=== PATIENT | female | born 1985 | race Caucasian/White ===

== ENCOUNTER → 2016-10-06 | Day surgery (SDC) | payer BC ==
[2016-09-19 09:13] VITALS: Ht 167.9 cm; Wt 58.2 kg
[~2016-10-06] VITALS: Ht 167.9 cm; Wt 58.2 kg
[~2016-10-06] MED LIST: ETONMIS VAGRING; MULT-506 PO
[2016-10-06 12:00] VITALS: BP 150/77; PULSE 65; TEMP 36.2; O2SAT 100
--- NOTE | 2016-10-11 02:54 | OPERATIVE REPORT ---
DATE OF OPERATION: 10/06/2016 PROCEDURE: Hydrogen breath test for lactose intolerance. INDICATIONS: The patient is having abdominal bloating. DESCRIPTION OF PROCEDURE: The patient presented to the endoscopy center at [facility] on October 06 and ingested 25 grams of lactose. Her baseline hydrogen level was 3 with a CO2 level of 3.5. Hydrogen levels and CO2 levels were obtained every 60 minutes for 3 hours. At 60 minutes her hydrogen level was 16, at 120 minutes was 48, she was experiencing gas, cramps and urge to move her bowels. At 180 minutes her hydrogen level was 44 with the same symptoms. Her CO2 level remained close to baseline the entire time. IMPRESSION: The patient had a rise in hydrogen level during her test with symptoms. These are consistent with LACTOSE INTOLERANCE. I attest to the content of the Intraoperative Record and any orders documented therein. Any exceptio ns are noted below.
== END | disposition home or self-care (01) ==
LOC: C.GI 08:27
PROVIDERS: ATTEND Internal Medicine Gastroenterology
DX: E74.39 Other disorders of intestinal carbohydrate absorption (principal)

== ENCOUNTER → 2016-11-22 | Outpatient (CLI) | payer BC | END | disposition home or self-care (01) | LOC: C.LAB1850 15:11 | PROVIDERS: ATTEND Obstetrics & Gynecology | DX: N83.9 Noninflammatory disorder of ovary, fallopian tube and broad ligament, unspecified (principal) ==

== ENCOUNTER → 2017-02-17 | Outpatient (CLI) | payer BC | END | disposition home or self-care (01) | LOC: C.LAB1850 16:24 | PROVIDERS: ATTEND Obstetrics & Gynecology | DX: Z32.00 Encounter for pregnancy test, result unknown (principal) ==

== ENCOUNTER → 2017-03-10 | Outpatient (CLI) | payer BC ==
[2017-03-10 14:10] LABS: URINE APPEARANCE CLEAR (CLEAR); URINE BILIRUBIN NEG (NEG); URINE COLOR YELLOW; URINE EPITHELIAL CELL AUTO >30 /lpf (0-5); URINE NITRITE NEG (NEG); URINE SPECIFIC GRAVITY 1.025 (1.000-1.030); UROBILINOGEN NEG (NEG)
[2017-03-10 14:11] LABS: MANUAL MICROSCOPIC REQUIRED? NO; REVIEW REQ? NO
== END | disposition home or self-care (01) ==
LOC: C.LABSPEC 13:14
PROVIDERS: ATTEND Obstetrics & Gynecology
DX: Z34.03 Encounter for supervision of normal first pregnancy, third trimester (principal)

== ENCOUNTER → 2017-03-14 | Outpatient (CLI) | payer BC ==
[2017-03-14 12:21] LABS: BASO % 0.1 %; BASO ABS # 0.01 K/uL (0-0.2); COMPLETE YES; EOS % 0.4 %; HEMATOCRIT 37.8 % (37-47); IG% 0.3 %; LYMPH % 9.7 %; LYMPH ABS # 1.03 K/uL (1.2-3.4); MEAN CELL VOLUME 84.8 fL (80-100); MEAN CORPUSCULAR HGB CONC 35.4 g/dl (32-36); MEAN PLATELET VOLUME 11.1 fL (7.4-10.4); MONO % 8.7 %; NEUT % 80.8 %; PLATELET COUNT 246 K/uL (130-400); RED BLOOD COUNT 4.46 M/uL (4.2-5.4); WHITE BLOOD COUNT 10.65 K/uL (4.8-10.8)
== END | disposition home or self-care (01) ==
LOC: C.LAB1850 10:34
PROVIDERS: ATTEND Obstetrics & Gynecology
DX: Z01.419 Encounter for gynecological examination (general) (routine) without abnormal findings (principal); Z34.02 Encounter for supervision of normal first pregnancy, second trimester; N83.9 Noninflammatory disorder of ovary, fallopian tube and broad ligament, unspecified

== ENCOUNTER → 2017-04-14 | Outpatient (CLI) | payer BC ==
[2017-04-14 16:11] LABS: GTGD 50 Grams
[2017-04-17 15:21] LABS: AFP CONCENTRATION 50.3 NG/ML; AFP MULTIPLE OF MEDIAN 1.39; AFPTS GESTATIONAL AGE 16.1 WEEKS; AFPTS INSULIN DEP DIABETIC? NO; AFPTS MATERNAL WT 132 LBS; ALPHA-FETOPROTEIN RACE CAUCASIAN=W; HISTORY OF NTD NO; REPEAT SAMPLE? NO
== END | disposition home or self-care (01) ==
LOC: C.LAB1850 13:46
PROVIDERS: ATTEND Obstetrics & Gynecology
DX: Z34.02 Encounter for supervision of normal first pregnancy, second trimester (principal)

== ENCOUNTER → 2017-06-02 | Outpatient (CLI) | payer BC ==
[2017-06-05 09:16] LABS: D. FARINAE CLASS 2; D. PTERONYSSINUS CLASS 2; D. PTERONYSSINUS IGE 1.75 KU/L; DOG DANDER CLASS 0
== END | disposition home or self-care (01) ==
LOC: C.LAB1850 09:49
PROVIDERS: ATTEND Internal Medicine Pulmonary Disease
DX: J31.0 Chronic rhinitis (principal)

== ENCOUNTER → 2017-07-18 | Outpatient (CLI) | payer OTHER ==
[~2017-07-18] MED LIST changes: +PRENTAB26 PO
== END | disposition home or self-care (01) ==
LOC: C.LAB 15:38
PROVIDERS: ATTEND Obstetrics & Gynecology
DX: O36.0191 Maternal care for anti-D [Rh] antibodies, unspecified trimester, fetus 1 (principal)

== ENCOUNTER → 2017-07-20 | Day surgery (SDC) | payer OTHER ==
[~2017-07-20] VITALS: Ht 167.6 cm; Wt 64.0 kg
[~2017-07-20] MED LIST changes: -PRENTAB26 PO
[2017-07-20 13:27] VITALS: BP 104/71; PULSE 84; TEMP 36.8; O2SAT 96; Ht 167.6 cm; Wt 64.0 kg
== END | disposition home or self-care (01) ==
LOC: EDSTATUS 13:00 → C.MTU 13:01
PROVIDERS: ATTEND Obstetrics & Gynecology
DX: O36.0990 Maternal care for other rhesus isoimmunization, unspecified trimester, not applicable or unspecified (principal); Z3A.00 Weeks of gestation of pregnancy not specified

== ENCOUNTER 2017-09-19 13:21 | Inpatient (IN) | payer OTHER ==
[~2017-09-19] VITALS: Ht 165.1 cm; Wt 69.8 kg
[2017-09-19] MEDS ORDERED: LACTATED RINGER'S 1000ML 1,000 ML IV PRN ×2 (14:07→15:20)
[2017-09-19] MEDS ORDERED: PRENTAB26 PO (14:14)
[2017-09-19 14:18] VITALS: Ht 165.1 cm; Wt 69.8 kg
[2017-09-19] MEDS ORDERED: MISOPROSTOLTAB 50 MCG TAB PO ONE ×2 (14:30→15:30)
[2017-09-19 14:50] LABS: HEMATOCRIT 36.3 % (37-47); HEMOGLOBIN 13.1 g/dL (12.0-16.0); MEAN CELL VOLUME 85.2 fL (80-100); MEAN CORPUSCULAR HEMOGLOBIN 30.8 pg (25-34); MEAN CORPUSCULAR HGB CONC 36.1 g/dl (32-36); PLATELET COUNT 165 K/uL (130-400); WHITE BLOOD COUNT 10.91 K/uL (4.8-10.8)
[2017-09-19 15:04] LABS: ALBUMIN 2.8 gm/dl (3.4-5.0); ALT/SGPT 32 U/L (12-78); BLOOD UREA NITROGEN 20 mg/dl (7-18); CALCIUM 9.1 mg/dl (8.5-10.1); CARBON DIOXIDE 21 mmol/L (21-32); CREATININE 0.93 mg/dl (0.60-1.20); GLUCOSE 73 mg/dl (70-99); POTASSIUM 4.5 mmol/L (3.5-5.1); SODIUM 134 mmol/L (136-145)
[2017-09-19 15:07] LABS: ALKALINE PHOSPHATASE 176 U/L (45-117); AST/SGOT 37 U/L (15-37); TOTAL PROTEIN 6.7 gm/dl (6.4-8.2)
[2017-09-19] MEDS ORDERED: NURSING VERBAL MED ORDER ONE (15:45)
[2017-09-19] MEDS: CALCIUM CARBONATE 500 MG CHEWABLE PO PRN (17:55)
[2017-09-19] MEDS: ACETAMINOPHEN 325 MG TAB PO PRN (17:56)
[2017-09-19] MEDS ORDERED: DINOPROSTONE 10 MG INSERT PV ONE (20:27)
[2017-09-20] MEDS: ACETAMINOPHEN 325 MG TAB PO PRN (00:04)
[2017-09-20] MEDS: CALCIUM CARBONATE 500 MG CHEWABLE PO PRN ×2 (02:22→23:14)
[2017-09-20] MEDS ORDERED: LACTATED RINGER'S 1000ML 500 ML IV PRN ×2 (10:53→19:44)
[2017-09-20] MEDS ORDERED: OXYTOCIN 30 UNITS/500ML NSS IV PRN (11:00)
[2017-09-20] MEDS: LACTATED RINGER'S 1000ML 1,000 ML IV SCH ×3 (11:50→19:01)
[2017-09-20] MEDS ORDERED: BUPIVACAINE 0.25% 30 ML VIAL ONE (18:25)
[2017-09-20] MEDS ORDERED: EpHEDrine SULFATE INJ 50 MG/ML AMP ONE (18:25)
[2017-09-20] MEDS ORDERED: FENTANYL CITRATE INJ 50 MCG/1 ML 2 ML VIAL ONE (18:26)
[2017-09-20] MEDS ORDERED: FENTANYL 2MCG/ML ROPIV 1.25MG/ML 100ML BAG EPI ONE (18:26)
[2017-09-20] MEDS ORDERED: NALOXONE HCL INJ 1 MG in SODIUM CHLORIDE 0.9% 1000ML 1,000 ML IV PRN ×4 (19:44)
[2017-09-20] MEDS ORDERED: ONDANSETRON INJ 2 MG/ML 2 ML VIAL IV PRN (19:45)
[2017-09-20] MEDS ORDERED: FENTANYL 2MCG/ML ROPIV 1.25MG/ML 100ML BAG EPI PRN (19:45)
[2017-09-20] MEDS ORDERED: DiphenhydrAMINE HCL 50 MG/ML VIAL IV PRN (19:45)
[2017-09-20] MEDS ORDERED: PROMETHAZINE HCL INJ 25 MG in SODIUM CHLORIDE 0.9% 50ML 50 ML IV PRN (19:45)
[2017-09-20] MEDS ORDERED: NALBUPHINE HCL INJ 10 MG/ML AMP IV PRN (19:45)
[2017-09-20] MEDS ORDERED: EpHEDrine SULFATE INJ 50 MG/ML AMP IV PRN (19:45)
[2017-09-20] MEDS ORDERED: NALOXONE HCL INJ 0.4 MG/1 ML VIAL/CARP IV PRN (19:45)
[2017-09-20] MEDS ORDERED: CALCIUM CARBONATE 500 MG CHEWABLE PO PRN (23:15)
[2017-09-21] VITALS (17 sets, daily range): BP systolic 137–154; BP diastolic 75–86; PULSE 61–77; TEMP 36.4–37; O2SAT 93–100
[2017-09-21] MEDS: FENTANYL CITRATE INJ 50 MCG/1 ML 2 ML VIAL ONE ×2 (03:23→03:30)
[2017-09-21] MEDS ORDERED: CEFOXITIN IV 2,000 MG in DEXTROSE 5% 50ML 50 ML IV SCH (06:00)
[2017-09-21] MEDS ORDERED: CITRIC ACID/SODIUM CITRATE 15 ML UDC ONE (06:15)
[2017-09-21] MEDS ORDERED: CITRIC ACID/SODIUM CITRATE 15 ML UDC PO ONE (06:15)
[2017-09-21] MEDS ORDERED: FENTANYL CITRATE INJ 50 MCG/1 ML 2 ML VIAL ONE (06:17)
[2017-09-21] MEDS ORDERED: LIDOCAINE/EPINEPHRINE 2% 1:200,000 20 ML SDV ONE (06:17)
[2017-09-21] MEDS ORDERED: OXYTOCIN INJ 10 UNITS/ML VIAL ONE ×4 (06:18→07:32)
[2017-09-21] MEDS ORDERED: PROMETHAZINE HCL INJ 12.5 MG in SODIUM CHLORIDE 0.9% 50ML 50 ML IV PRN ×2 (06:30→08:00)
[2017-09-21] MEDS ORDERED: EpHEDrine SULFATE INJ 50 MG/ML AMP IV PRN ×2 (06:30→08:00)
[2017-09-21] MEDS ORDERED: ATROPINE SULFATE 0.1 MG/ML 5ML SYR IV PRN (06:30)
[2017-09-21] MEDS ORDERED: FENTANYL CITRATE INJ 50 MCG/1 ML 2 ML VIAL IV PRN (06:30)
[2017-09-21] MEDS ORDERED: HYDROmorphone INJ 1 MG/ML SYR IV PRN (06:30)
[2017-09-21] MEDS ORDERED: PHENYLEPHRINE 100MCG/ML 5ML SYR IV PRN (06:30)
[2017-09-21] MEDS ORDERED: ONDANSETRON INJ 2 MG/ML 2 ML VIAL IV PRN ×2 (06:30→08:00)
[2017-09-21] MEDS ORDERED: FENTANYL CITRATE INJ 50 MCG/1 ML 2 ML VIAL IV ONE (06:30)
--- NOTE | 2017-09-21 06:38 | HISTORY & PHYSICAL EXAMINATION ---
DATE OF ADMISSION: 09/21/2017 CHIEF COMPLAINT: Toxemia of , arrest of labor. HISTORY OF PRESENT ILLNESS: The patient is a 32-year-old 1, para 0. Her general health is good and her due date is 09/28/2017 confirmed by early ultrasound. was uneventful until 09/15/2017 when she developed a constant headache which was not responsive to Tylenol and lasted the entire week and she called the office on Monday. She was brought in on 09/19/2017. At that time, she had a blood pressure of 140/92. Her other pressures were in the range of about 115/75-78. She also had +1 protein. At this time, she was diagnosed with toxemia associated with a constant headache. She was brought in for induction of labor. Labor was started with p.o. Cytotec 50 mcg. Then we went to a Cervidil tape and then to IV Pitocin. Her membranes ruptured spontaneously. Fluid was clear. Eventually she had epidural from which she obtained good pain relief, was fully dilatation and pushed for well over 3 hours, was unable to engage the head into the mid pelvis. Diagnosis of cephalopelvic disproportion was made and she was scheduled for section. ALLERGIES: No known drug allergies. PAST SURGICAL HISTORY: She had her left ovary removed due to a benign large ovarian cyst. MEDICAL HISTORY: No history of rheumatic fever, heart disease, heart murmur, diabetes, tuberculosis. SOCIAL HISTORY: No smoking, no alcohol intake. Works for [employer]. FAMILY HISTORY: Mom is 68 in good health. Father 65 in good health. One sister in good health. REVIEW OF SYSTEMS: HEAD: No symptoms of frequent or severe headaches. EYES: No symptoms of blurred vision, double vision. EARS: No symptoms of frequent ear infections, difficulty hearing. PHYSICAL EXAMINATION: GENERAL: Well developed, well-nourished 32-year-old white female, alert, oriented x3 and cooperative in no acute distress. EYES: Conjunctivae are pink. Sclerae white, no evidence of jaundice. HEART: Had regular rhythm. S1, S2 are normal. BREASTS: Normal. ABDOMEN: Consistent with a term size fetus. No CVA tenderness. Well-healed Pfannenstiel scar. PELVIC: Revealed a MEHDI vertex position, large amount of molding and about a 0 to +1 station. IMPRESSIONS OF THIS CASE: Intrauterine , 39 weeks gestation, arrest of labor secondary to cephalopelvic disproportion and toxemia of and cephalopelvic disproportion. BASIAD
[2017-09-21] MEDS ORDERED: EpHEDrine SULFATE INJ 50 MG/ML AMP ONE (06:50)
[2017-09-21] MEDS ORDERED: PHENYLEPHRINE HCL INJ 10 MG/ML VIAL ONE (06:50)
[2017-09-21] MEDS ORDERED: MoRPHine SULFATE PF 1 MG/ML 10 ML AMP/VIAL ONE (07:00)
[2017-09-21] MEDS ORDERED: DC INTRASPINAL MORPHINE SCH (07:10)
[2017-09-21] MEDS ORDERED: LACTATED RINGER'S 1000ML 500 ML IV PRN (07:52)
[2017-09-21] MEDS ORDERED: SODIUM CHLORIDE 0.9% 1000ML 1,000 ML IV PRN (07:52)
[2017-09-21] MEDS ORDERED: NALOXONE HCL INJ 1 MG in SODIUM CHLORIDE 0.9% 1000ML 1,000 ML IV PRN ×4 (07:52)
[2017-09-21] MEDS ORDERED: NALOXONE HCL INJ 0.08 MG in SYRINGE 1.8 ML IV PRN (07:52)
[2017-09-21] MEDS ORDERED: NALBUPHINE HCL INJ 10 MG/ML AMP IV PRN (08:00)
[2017-09-21] MEDS ORDERED: BENZOCAINE 20% AER SPR 82.5 GM CAN EXT PRN (08:00)
[2017-09-21] MEDS ORDERED: DIPHTHERIA/TETANUS/PERTUSSIS 0.5 ML SYR/VIAL IM. ONE (08:00)
[2017-09-21] MEDS ORDERED: MAGNESIUM HYDROXIDE SUSP 30 ML UDC PO PRN (08:00)
[2017-09-21] MEDS ORDERED: LANOLIN OINT EXT PRN (08:00)
[2017-09-21] MEDS ORDERED: MoRPHine SULFATE PF 1 MG/ML 10 ML AMP/VIAL EPI PRN (08:00)
[2017-09-21] MEDS ORDERED: SUPERCREAM 0.870 % 15GM JAR EXT PRN (08:00)
[2017-09-21] MEDS ORDERED: SENNA 8.6 MG TAB PO PRN (08:00)
[2017-09-21] MEDS ORDERED: NALOXONE HCL 0.4 MG/1 ML VIAL/CARP IV PRN (08:00)
[2017-09-21] MEDS ORDERED: MEPERIDINE HCL 25 MG/ML CARP IV PRN (08:00)
[2017-09-21] MEDS ORDERED: DiphenhydrAMINE HCL 50 MG/ML VIAL IV PRN (08:00)
[2017-09-21] MEDS ORDERED: NO NARCOTICS OR SEDATIVES SCH (08:00)
[2017-09-21] MEDS ORDERED: HYDROCORTISONE ACETATE 25 MG SUPP PR PRN (08:00)
--- NOTE | 2017-09-21 08:18 | OPERATIVE REPORT ---
DATE OF OPERATION: 09/21/2017 PROCEDURE: Primary low segment section. INDICATIONS FOR SURGERY: Toxemia, cephalopelvic disproportion. PREOPERATIVE DIAGNOSIS: Toxemia and cephalopelvic disproportion. POSTOPERATIVE DIAGNOSES: Nuchal cord x2, direct occiput posterior position. SURGEON: Vasiliy Tirado MD. CASINO RUNNER: Maged Andersen MD. ESTIMATED BLOOD LOSS: 400 mL. ANESTHESIA: Epidural. OPERATIVE FINDINGS AND PROCEDURE: The patient was brought to the OR table, correctly identified by armband and conversation. The epidural was topped off. Lower abdomen and upper thigh was painted with an alcohol based sterilizing solution, draped in usual sterile fashion. Adequacy of the anesthesia was tested and found to be good. Pfannenstiel incision was then made through her previous Pfannenstiel scar, carried down to the anterior fascia by sharp dissection. Hemostasis was secured by electrocauterization. Fascia was incised transversely from the underlying muscle by blunt and sharp dissection. Recti muscles were in the midline exposing the peritoneum which was carefully raised and entered. An incision was made above the vesicouterine fold. The bladder was undermined bluntly and pushed out of the operative field. Lower uterine segment was scored with a knife and then entered with the scissors. The head was wedged into the pelvis and I had to get my hand around it and dislodge the head from the pelvis. At this time, it was noted to be in direct occiput posterior position. Once the head was delivered, There was a nuchal cord x2, which had to be reduced around the neck. Then the body was delivered and the infant was attended to by the ortho assistant, Dr. Lin who was scrubbed and present at the time of delivery. Cord was clamped and cut. Cord was sent for gases, cord blood was taken. The placenta was removed intact. Uterus and right tube and ovary and left tube were brought out through the incision. Uterine cavity was wiped clean with a clean sponge. Ten units of Pitocin were injected into the myometrium. The myometrium was then approximated with a deep suture of heavy chromic and then a layer over this approximating the fascia with a heavy Vicryl and then several [id number] sutures of Vicryl to complete the approximation. Hemostasis was excellent. The peritoneal edges were then restored with a running chromic, which restored the integrity of the vesicouterine fold. The pelvis was cleansed of all blood clots and debris. Uterus, tubes, and ovaries were reinserted into the abdomen. Careful anatomical approximation of the anterior abdominal wall was performed. Peritoneum was closed with a mattress suture of chromic catgut. Recti muscles were approximated with interrupted [id number] suture of chromic catgut. The fascia was closed with continuous interlocking suture of Vicryl on each side, tied in the midline. SubQ was approximated with a running plain. The skin edges were approximated with staple clips. I attest to the content of the Intraoperative Record and any orders documented therein. Any exception s are noted below.
[2017-09-21] MEDS: KETOROLAC TROMETHAMINE 30 MG/ML VIAL IV. PRN ×2 (08:56→20:05)
[2017-09-21] MEDS: OXYTOCIN INJ 20 UNITS in LACTATED RINGER'S 1000ML 1,000 ML IV SCH ×2 (09:43→20:28)
--- NOTE | 2017-09-21 10:10 | Anesthesiology Progress Note ---
Anesthesia Post Op Note Date & Time Sep 21, 2017 at 10:10 Notes Mental Status: alert / awake / arousable, participated in evaluation Pt Amnestic to Procedure: Yes Nausea / Vomiting: adequately controlled Pain: adequately controlled Airway Patency, RR, SpO2: stable & adequate BP & HR: stable & adequate Hydration State: stable & adequate Anesthetic Complications: no major complications apparent
[2017-09-21] MEDS: PRENATAL VITAMIN TAB PO SCH (10:29)
[2017-09-21] MEDS: DOCUSATE SODIUM 100 MG CAP PO SCH ×2 (10:29→20:31)
[2017-09-21] MEDS: FERROUS SULFATE 325 MG TAB PO SCH (10:29)
[2017-09-21] MEDS: SIMETHICONE 80 MG CHEW PO SCH ×4 (10:29→20:30)
[2017-09-21] MEDS ORDERED: COUGH DROP (SUGAR FREE) LOZ 24 LOZ/1 BOX LOZ ONE (15:07)
[2017-09-22] MEDS ORDERED: ONDANSETRON INJ 2 MG/ML 2 ML VIAL IV PRN
[2017-09-22] MEDS ORDERED: NURSING VERBAL MED ORDER ONE
[2017-09-22] MEDS ORDERED: MEPERIDINE HCL 50 MG/ML CARP IV PRN ×2
[2017-09-22] MEDS ORDERED: ZOLPIDEM TARTRATE 5 MG TAB PO PRN
[2017-09-22] MEDS ORDERED: DiphenhydrAMINE HCL 50 MG/ML VIAL IV PRN
[2017-09-22] MEDS ORDERED: OXYCODONE/ACETAMINOPHEN 5-325 TAB PO PRN
[2017-09-22] MEDS ORDERED: KETOROLAC TROMETHAMINE 30 MG/ML VIAL IV. PRN
[2017-09-22] MEDS: IBUPROFEN 600 MG TAB PO PRN ×5 (02:24→21:56)
[2017-09-22 03:25] VITALS: BP 122/62; PULSE 75; TEMP 37; O2SAT 99
[2017-09-22 07:08] LABS: HEMATOCRIT 28.5 % (37-47); HEMOGLOBIN 10.2 g/dL (12.0-16.0); MEAN CELL VOLUME 85.8 fL (80-100); MEAN CORPUSCULAR HEMOGLOBIN 30.7 pg (25-34); MEAN CORPUSCULAR HGB CONC 35.8 g/dl (32-36); MEAN PLATELET VOLUME 11.2 fL (7.4-10.4); PLATELET COUNT 127 K/uL (130-400); RED CELL DISTRIBUTION WIDTH CV 13.2 % (11.5-14.5); RED CELL DISTRIBUTION WIDTH SD 40.7 fL (36.4-46.3); WHITE BLOOD COUNT 17.65 K/uL (4.8-10.8)
[2017-09-22 07:29] LABS: BASO % 0.1 %; BASO ABS # 0.02 K/uL (0-0.2); EOS % 0.5 %; EOS ABS # 0.08 K/uL (0-0.5); IG# 0.09 K/uL (0.00-0.02); LYMPH % 10.8 %; MONO % 10.6 %; MONO ABS # 1.87 K/uL (0.11-0.59); NEUT % 77.5 %; NEUT ABS # 13.69 K/uL (1.4-6.5)
[2017-09-22 07:35] VITALS: BP 122/66; PULSE 74; TEMP 36.6; O2SAT 96
[2017-09-22] MEDS: PRENATAL VITAMIN TAB PO SCH (08:32)
[2017-09-22] MEDS: SIMETHICONE 80 MG CHEW PO SCH ×4 (08:32→19:44)
[2017-09-22] MEDS: DOCUSATE SODIUM 100 MG CAP PO SCH ×2 (08:32→19:55)
[2017-09-22] MEDS: FERROUS SULFATE 325 MG TAB PO SCH (08:32)
--- NOTE | 2017-09-22 09:02 | Progress Note ---
Subjective Sep 22, 2017. Subjective conversation w/ patient Ambulation: ambulating normally Voiding: no voiding problems Passing Gas: Yes Diet Tolerance: Regular Diet Lochia: Small Feeding Type: Breast Feeding Review of Systems Constitutional: + fever Objective Vital Signs Date Time Temp Pulse Resp B/P (MAP) Pulse Ox O2 Delivery O2 Flow Rate FiO2 09/22/17 07:35 36.6 74 20 122/66 (84) 96 Room Air 09/22/17 03:25 37.0 75 18 122/62 (82) 99 Room Air 09/21/17 23:30 100 Room Air 09/21/17 23:30 36.4 72 18 142/86 (104) 100 Room Air 09/21/17 23:30 20 100 09/21/17 22:45 18 99 09/21/17 21:45 16 96 09/21/17 20:45 18 95 09/21/17 20:30 37.0 76 18 137/78 (97) 98 Room Air 09/21/17 19:45 18 94 09/21/17 18:45 18 97 09/21/17 17:45 16 93 09/21/17 16:45 18 99 09/21/17 15:45 20 97 09/21/17 15:45 Room Air 09/21/17 15:45 36.5 76 20 151/81 (104) 97 Room Air 09/21/17 14:00 36.6 65 15 154/82 (106) 97 Room Air 09/21/17 14:00 18 95 09/21/17 13:20 18 95 09/21/17 12:15 20 95 09/21/17 12:14 77 20 147/76 (99) 95 Room Air 09/21/17 11:18 20 96 09/21/17 11:17 96 09/21/17 11:13 36.9 61 20 137/75 (95) 96 Room Air Physical Exam General Appearance: WELL-APPEARING Abdomen: normal bowel sounds, non tender Fundus: Firm, Non-Tender Incision Description: Clean, Dry & Intact Extremities: no pedal edema, no calf tenderness Laboratory Results Last 24 Hours Test 09/22/17 06:57 White Blood Count 17.65 K/uL Red Blood Count 3.32 M/uL Hemoglobin 10.2 g/dL Hematocrit 28.5 % Mean Corpuscular Volume 85.8 fL Mean Corpuscular Hemoglobin 30.7 pg Mean Corpuscular Hemoglobin Concent 35.8 g/dl Platelet Count 127 K/uL Mean Platelet Volume 11.2 fL Neutrophils (%) (Auto) 77.5 % Lymphocytes (%) (Auto) 10.8 % Monocytes (%) (Auto) 10.6 % Eosinophils (%) (Auto) 0.5 % Basophils (%) (Auto) 0.1 % Neutrophils # (Auto) 13.69 K/uL Lymphocytes # (Auto) 1.90 K/uL Monocytes # (Auto) 1.87 K/uL Eosinophils # (Auto) 0.08 K/uL Basophils # (Auto) 0.02 K/uL RDW Standard Deviation 40.7 fL RDW Coefficient of Variation 13.2 % Immature Granulocyte % (Auto) 0.5 % Immature Granulocyte # (Auto) 0.09 K/uL Assessment and Plan Post-Op Day#: 1 Continue Routine Care: good bowel sounds
[2017-09-22] MEDS: OXYCODONE/ACETAMINOPHEN 5-325 TAB PO PRN ×3 (10:50→21:56)
[2017-09-22] MEDS ORDERED: SODIUM CHLORIDE 0.65% NA SOLN 45 ML (OCEAN) ONE (10:57)
[2017-09-22] MEDS ORDERED: SODIUM CHLORIDE 0.65% NA SOLN 45 ML (OCEAN) PRN (11:15)
[2017-09-22 16:02] VITALS: O2SAT 97
[2017-09-22] MEDS ORDERED: BISACODYL 5 MG TABEC PO ONE (22:00)
[2017-09-23 00:15] VITALS: O2SAT 97
[2017-09-23] MEDS: IBUPROFEN 600 MG TAB PO PRN ×4 (04:50→17:14)
[2017-09-23] MEDS: OXYCODONE/ACETAMINOPHEN 5-325 TAB PO PRN ×4 (04:50→17:14)
[2017-09-23 08:00] VITALS: BP 149/93; PULSE 81; TEMP 36.3; O2SAT 98
[2017-09-23] MEDS: DOCUSATE SODIUM 100 MG CAP PO SCH ×2 (08:00→20:29)
[2017-09-23] MEDS ORDERED: BISACODYL 10 MG SUPP PR PRN (08:00)
[2017-09-23] MEDS: FERROUS SULFATE 325 MG TAB PO SCH (08:51)
[2017-09-23] MEDS: SIMETHICONE 80 MG CHEW PO SCH ×4 (08:51→20:29)
[2017-09-23] MEDS: PRENATAL VITAMIN TAB PO SCH (08:51)
--- NOTE | 2017-09-23 10:07 | Progress Note ---
Subjective Sep 23, 2017. Subjective conversation w/ patient Ambulation: ambulating normally Voiding: no voiding problems Passing Gas: Yes Diet Tolerance: Regular Diet Lochia: Small Feeding Type: Breast Feeding Review of Systems Constitutional: + fever Objective Vital Signs Date Time Temp Pulse Resp B/P (MAP) Pulse Ox O2 Delivery O2 Flow Rate FiO2 09/23/17 08:00 36.3 81 16 149/93 (111) 98 Room Air 09/23/17 08:00 98 Room Air 09/23/17 00:15 97 Room Air 09/22/17 16:02 97 Room Air Physical Exam General Appearance: WELL-APPEARING Respiratory/Chest: lungs clear Fundus: Firm, Non-Tender Incision Description: Clean, Dry & Intact Extremities: no pedal edema, no calf tenderness Assessment and Plan Post-Op Day#: 2
[2017-09-23 17:00] VITALS: BP 154/88; PULSE 78; TEMP 36.5; O2SAT 98
[2017-09-24 00:05] VITALS: BP 149/92; PULSE 80; TEMP 36.5
[2017-09-24] MEDS: IBUPROFEN 600 MG TAB PO PRN ×3 (00:06→13:00)
[2017-09-24] MEDS: OXYCODONE/ACETAMINOPHEN 5-325 TAB PO PRN ×3 (00:07→13:01)
[2017-09-24] MEDS: PRENATAL VITAMIN TAB PO SCH (09:13)
[2017-09-24] MEDS: FERROUS SULFATE 325 MG TAB PO SCH (09:14)
[2017-09-24] MEDS: SIMETHICONE 80 MG CHEW PO SCH ×2 (09:18→13:00)
[2017-09-24] MEDS: DOCUSATE SODIUM 100 MG CAP PO SCH (09:18)
--- NOTE | 2017-09-24 10:26 | Progress Note ---
Subjective Sep 24, 2017. Subjective conversation w/ patient Ambulation: ambulating normally Voiding: no voiding problems Passing Gas: Yes Diet Tolerance: Regular Diet Lochia: Small Feeding Type: Breast Feeding Review of Systems Constitutional: + fever Objective Vital Signs Date Time Temp Pulse Resp B/P (MAP) Pulse Ox O2 Delivery O2 Flow Rate FiO2 09/24/17 07:45 Room Air 09/24/17 00:05 Room Air 09/24/17 00:05 36.5 80 18 149/92 (111) Room Air 09/23/17 17:00 98 Room Air 09/23/17 17:00 36.5 78 18 154/88 (110) 98 Room Air Physical Exam General Appearance: WELL-APPEARING Abdomen: normal bowel sounds Fundus: Firm, Non-Tender Incision Description: Clean, Dry & Intact Extremities: no pedal edema, no calf tenderness Assessment and Plan Post-Op Day#: 3
--- NOTE | 2017-09-24 10:29 | Discharge Instructions ---
Discharge Instructions Date of Service Sep 24, 2017. Admission Reason for Admission: Induction Discharge Discharge Diagnosis / Problem: toxemia cephalopelvic disproportion Discharge Goals Goal(s): Routine recovery after Activity Recommendations Activity Limitations: as noted below ACTIVITY RECOMMENDATIONS: * Gradual return to full activity over the next 2-3 weeks. * No lifting - nothing heavier than baby over the next 2-3 weeks. * Do not engage in vigorous exercise, sexual activity or sports for 6 weeks. * Do not drive or operate any motorized equipment for 14 days. * You may shower/bathe daily. DIET: Resume Previous Diet If Breast-feeding: * Increase caloric intake by 500 calories, eat 3 well balanced meals, 2 high protein snacks a day and drink 6-8 8oz. glasses of fluid per day. BREAST CARE: If you are not breast feeding: * Wear a supportive bra 24 hours a day for one to two weeks. * Avoid stimulating your breasts and nipples as much as possible during the first few weeks after delivery. * When taking a shower, have the warm water hit your back, not breasts. * When your breasts feel full, apply ice packs. Usually three to four times a day helps ease the discomfort. * Take a mild pain medication (Tylenol / Motrin) when you are uncomfortable. If breast feeding: * Use breast milk to lubricate nipples. Lansinoh cream may be used for sore nipples. You do not need to remove cream prior to breast feeding. If using a different brand of cream, check the label for directions regarding removal of cream prior to nursing. * Wear a supportive bra. * If having problems with breasts or breast feeding, call a party plan sales consultant or your health care provider. VITAMINS: * One tablet daily. Continue taking while or until you have your check up in 6 weeks. SPECIAL CARE INSTRUCTIONS: * Vaginal rest (no tampons, douching, intercourse) until after doctor's visit. * control as discussed with doctor. * Verbalizes understanding of car seat law as reviewed with patient by nursing. * Car Seat hand-out given and reviewed with patient by nursing. * Shaken baby information reviewed with patient by nursing. Call you doctor if: * Heavy bleeding (saturating a pad an hour) or passing clots the size of your fist. Bleeding has a foul smelling odor. * A fever greater than 100.4 degrees F (38 degrees C) on two occasions four hours apart and/or chills. * Unusual pain in the pelvic or vaginal areas. Pain should improve each day . * Call the doctor for any increased redness, drainage or swelling around the incision and any pain unrelieved by prescribed pain medication. * Signs and symptoms of phlebitis(possible blood clots forming in the veins): leg pain, warm, red or swollen area on leg. * "Baby Blues" lasting longer than two weeks. If you have any questions or concerns, call your health care practitioner at [phone]. FOLLOW-UP VISIT: Follow-up visit for examination in 6 weeks. Incision check (staple removal) in 1 week. Please call office at [phone] if not already scheduled. . Instructions / Follow-Up Instructions / Follow-Up ACTIVITY RECOMMENDATIONS: * Gradual return to full activity over the next 2-3 weeks. * No lifting - nothing heavier than baby over the next 2-3 weeks. * Do not engage in vigorous exercise, sexual activity or sports for 6 weeks. * Do not drive or operate any motorized equipment for 14 days. * You may shower/bathe daily. DIET: Resume Previous Diet If Breast-feeding: * Increase caloric intake by 500 calories, eat 3 well balanced meals, 2 high protein snacks a day and drink 6-8 8oz. glasses of fluid per day. BREAST CARE: If you are not breast feeding: * Wear a supportive bra 24 hours a day for one to two weeks. * Avoid stimulating your breasts and nipples as much as possible during the first few weeks after delivery. * When taking a shower, have the warm water hit your back, not breasts. * When your breasts feel full, apply ice packs. Usually three to four times a day helps ease the discomfort. * Take a mild pain medication (Tylenol / Motrin) when you are uncomfortable. If breast feeding: * Use breast milk to lubricate nipples. Lansinoh cream may be used for sore nipples. You do not need to remove cream prior to breast feeding. If using a different brand of cream, check the label for directions regarding removal of cream prior to nursing. * Wear a supportive bra. * If having problems with breasts or breast feeding, call a party plan sales consultant or your health care provider. VITAMINS: * One tablet daily. Continue taking while or until you have your check up in 6 weeks. SPECIAL CARE INSTRUCTIONS: * Vaginal rest (no tampons, douching, intercourse) until after doctor's visit. * control as discussed with doctor. * Verbalizes understanding of car seat law as reviewed with patient by nursing. * Car Seat hand-out given and reviewed with patient by nursing. * Shaken baby information reviewed with patient by nursing. Call you doctor if: * Heavy bleeding (saturating a pad an hour) or passing clots the size of your fist. Bleeding has a foul smelling odor. * A fever greater than 100.4 degrees F (38 degrees C) on two occasions four hours apart and/or chills. * Unusual pain in the pelvic or vaginal areas. Pain should improve each day . * Call the doctor for any increased redness, drainage or swelling around the incision and any pain unrelieved by prescribed pain medication. * Signs and symptoms of phlebitis(possible blood clots forming in the veins): leg pain, warm, red or swollen area on leg. * "Baby Blues" lasting longer than two weeks. If you have any questions or concerns, call your health care practitioner at [phone]. FOLLOW-UP VISIT: Follow-up visit for examination in 6 weeks. Incision check (staple removal) in 1 week. Please call office at [phone] if not already scheduled. Current Hospital Diet Patient's current hospital diet: Regular OB Diet Discharge Diet Recommended Diet: Regular Diet Procedures Procedures Performed: Primary caesarean section for live male at 0703 Pending Studies Studies pending at discharge: no Medical Emergencies . Who to Call and When: Medical Emergencies: If at any time you feel your situation is an emergency, please call 911 immediately. . Non-Emergent Contact Non-Emergency issues call your: [employer] Call Non-Emergent contact if: temperature is above 100.5 . . "Provider Documentation" section prepared by Kevin Tirado. .
--- NOTE | 2017-09-24 11:19 | DISCHARGE SUMMARY ---
Mrs. Dickerson has been followed in my office for care and delivery. She is a 32-year-old 1, para 1, and a history of having a removal of a left ovarian cyst. She had an uneventful course until 09/19/2017 when she called the office and said she had had a headache for 4 days. She was seen in the office at which point her blood pressure was 140/92, which was a significant rise from her prior blood pressure of 120/78. She also had +1 protein. At that time, she was diagnosed with toxemia with an associated headache. She also stated the headache was unresponsive to Tylenol. She was brought in for induction. Cervix was ripe. It was about 2+ cm soft. She was started with p.o. 50 mcg Cytotec followed by Cervidil tape. Eventually, we got the patient in good labor and she went from the tablet and the tape to IV Pitocin and then, membranes ruptured spontaneously. Fluid was clear. She eventually received epidural for pain control and she pushed for well over 3 hours and could not get the head down into the mid pelvis. A diagnosis of cephalopelvic disproportion was made. She underwent primary low segment section, at which time, she had nuchal cord x2 and the infant was in a right occiput posterior position. Postoperatively, the patient did well. Her hemoglobin dropped about 10 grams and about 10.5 after the surgery. Actual bleeding at the time of surgery was minimal. It was estimated about 500 mL. She remained afebrile. Her bowel sounds returned promptly. On the third postoperative day, she was ambulating well, eating well. Incision was clean and dry. She had prescriptions for Percocet and Motrin and was told to call the office for removal of the elizabeth.
[2017-09-24 14:21] VITALS: BP_DIAS 92; PULSE 80; TEMP 36.5
== END 2017-09-24 13:45 | disposition home or self-care (01) | DRG 766 ==
LOC: C.LD 13:21 → EEVIPCON 13:21 → C.OBG 09-21 10:40
PROVIDERS: ADMIT Obstetrics & Gynecology; ATTEND Obstetrics & Gynecology
PROC: 3E0P7GC Introduction of Other Therapeutic Substance into Female Reproductive, Via Natural or Artificial Opening (ICD-10-PCS; principal; 2017-09-21 06:10)
PROC: 10D00Z1 Extraction of Products of Conception, Low, Open Approach (ICD-10-PCS; principal; 2017-09-21 06:10)
DX: O14.94 Unspecified pre-eclampsia, complicating childbirth (principal); O33.9 Maternal care for disproportion, unspecified; O69.81X0 Labor and delivery complicated by cord around neck, without compression, not applicable or unspecified; Z3A.39 39 weeks gestation of pregnancy; Z37.0 Single live birth; Z90.721 Acquired absence of ovaries, unilateral